=== PATIENT | female | born 1955 | race Caucasian/White ===

== ENCOUNTER → 2016-12-06 | Outpatient (CLI) | payer BC ==
--- NOTE | 2016-12-06 16:37 | MAMMOGRAPHY REPORT ---
BILATERAL DIGITAL SCREENING MAMMOGRAM TOMOSYNTHESIS WITH CAD: 12/06/2016 CLINICAL HISTORY: Routine screening. Patient has no complaints. TECHNIQUE: Bilateral breast tomosynthesis in addition to standard 2D mammography was performed. Curr ent study was also evaluated with a Computer Aided Detection (CAD) system. COMPARISON: Comparison is made to exams dated: 11/26/2015 mammogram, 09/23/2014 mammogram, 3 mammogram, 01/31/2012 mammogram, and 06/10/2010 mammogram. BREAST COMPOSITION: The tissue of both breasts is heterogeneously dense, which may obscure small ma sses. FINDINGS: There is questionable architectural distortion in the 12:00 posterior retroglandular fat of the right breast. Although this could represent normal overlapping fibrolinear markings, additio nal spot compression tomosynthesis HD views and possibly ultrasound are recommended. No other suspicious mass, architectural distortion or cluster of microcalcifications is seen bilater ally. IMPRESSION: ACR BI-RADS CATEGORY 0: INCOMPLETE EVALUATION: NEED ADDITIONAL IMAGING EVALUATION The questionable architectural distortion in the 12:00 posterior right breast needs additional evalu ation. The patient will be called to schedule an appointment. Approximately 10% of breast cancers are not detected with mammography. A negative mammographic repor t should not delay biopsy if a clinically suggestive mass is present. Nelda Gonzales M.D. ay/:12/06/2016 15:28:47 Facing Baster Jumpbasting: Tiffany Fernandez, [facility] letter sent: Addl Imaging 0 BI-RADS Code: ACR BI-RADS Category 0: Incomplete Evaluation: Need Additional Imaging Evaluation
== END | disposition home or self-care (01) ==
LOC: C.MAMM 12:57
PROVIDERS: ATTEND Family Medicine
DX: Z12.31 Encounter for screening mammogram for malignant neoplasm of breast (principal); R92.8 Other abnormal and inconclusive findings on diagnostic imaging of breast; Z13.820 Encounter for screening for osteoporosis

== ENCOUNTER → 2016-12-16 | Outpatient (CLI) | payer BC ==
--- NOTE | 2016-12-16 16:26 | MAMMOGRAPHY REPORT ---
UNILATERAL RIGHT DIGITAL DIAGNOSTIC MAMMOGRAM TOMOSYNTHESIS: 12/16/2016 CLINICAL HISTORY: Callback from screening mammogram for possible right breast architectural distorti on. TECHNIQUE: Breast tomosynthesis in addition to standard 2D mammography was performed. Spot wood qian right CC and MLO 2-D and tomosynthesis images were obtained. COMPARISON: Comparison is made to exams dated: 12/06/2016 mammogram - [facility], 11/26/2015 mammogram, 09/23/2014 mammogram, 07/11/2013 mammogram, 01/31/2012 mammogram, and 06/10/2010 m ammogram. BREAST COMPOSITION: The tissue of the right breast is heterogeneously dense, which may obscure smal l masses. FINDINGS: The previously described questionable architectural distortion in the right 12:00 breast does not persist on the additional spot compression views. The appearance of this region is similar to multiple prior exams. The tissue in this region has the appearance of normal fibroglandular tis emerald on the additional views, without a suspicious mass or area of architectural distortion seen. Fi ndings are benign and compatible with normal fibroglandular tissue. IMPRESSION: ACR BI-RADS CATEGORY 2: BENIGN The questionable architectural distortion in the right 12:00 breast does not persist on the addition al views. Findings are benign and compatible with normal fibroglandular tissue. There is no mammog raphic evidence of malignancy. A 1 year screening mammogram is recommended. The patient has been ve rbally notified of the results. Approximately 10% of breast cancers are not detected with mammography. A negative mammographic repor t should not delay biopsy if a clinically suggestive mass is present. Dedra Ring M.D. ah/:12/16/2016 14:12:04 Retrofit Installer: Dora JOHNSON)(M), [facility] letter sent: Normal 1/2 BI-RADS Code: ACR BI-RADS Category 2: Benign
== END | disposition home or self-care (01) ==
LOC: C.MAMM 13:42
PROVIDERS: ATTEND Family Medicine
DX: N64.9 Disorder of breast, unspecified (principal)

== ENCOUNTER → 2016-12-16 | Outpatient (CLI) | payer BC ==
--- NOTE | 2016-12-16 09:06 | DIAGNOSTIC IMAGING REPORT ---
SACRUM COCCYX MIN 2 VIEWS CLINICAL HISTORY: Sacral pain. COMPARISON STUDY: None. FINDINGS: Posterior fusion hardware within the lower lumbar spine. No fractures within the sacrum or coccyx. Mild degenerative changes within the bilateral sacroiliac joints. The presacral soft tissues are intact. Lucency overlying the upper mid sacrum is likely due to overlapping bowel. IMPRESSION: No fractures within the sacrum or coccyx. Electronically signed by: Ayden Hill M.D. 12/16/2016 9:04 AM Dictated Date/Time: 12/16/2016 9:01 AM
--- NOTE | 2016-12-16 09:19 | DIAGNOSTIC IMAGING REPORT ---
LUMBAR SPINE 5 VIEWS CLINICAL HISTORY: Low back pain. FINDINGS: 5 views of the lumbar spine are obtained. No prior studies are available for comparison at the time of dictation. The skeletal structures appear osteopenic. There is no radiographic evidence of fracture or malalignment. Vertebral body height and alignment are maintained. There are postoperative changes from laminectomy and posterior fusion at L4-L5. Interpedicular screws are present at both levels. The orthopedic hardware appears intact. The transverse and remaining spinous processes are intact. There is no evidence of spondylolysis. There is evidence of discectomy at L4-L5. Mild degenerative disc space narrowing is present at L3-L4. The remaining intervertebral disc spaces are well-maintained. Anterior osteophytes are seen in the lower thoracic spine. The visualized bony pelvis appears intact. There is a nonobstructed abdominal bowel gas pattern. Moderate colonic fecal retention is observed. IMPRESSION: There is no acute bony abnormality seen involving the lumbosacral spine noting postoperative changes from L4 to L5 spinal fusion. Electronically signed by: Nish Keen M.D. 12/16/2016 9:17 AM Dictated Date/Time: 12/16/2016 9:02 AM
== END | disposition home or self-care (01) ==
LOC: C.RAD1850 08:34
PROVIDERS: ATTEND Family Medicine
DX: Z86.69 Personal history of other diseases of the nervous system and sense organs (principal)

== ENCOUNTER → 2017-12-08 | Outpatient (CLI) | payer OTHER ==
--- NOTE | 2017-12-08 15:07 | MAMMOGRAPHY REPORT ---
BILATERAL DIGITAL SCREENING MAMMOGRAM TOMOSYNTHESIS WITH CAD: 12/08/2017 CLINICAL HISTORY: Routine screening. Patient has no complaints. TECHNIQUE: Breast tomosynthesis in addition to standard 2D mammography was performed. Current study was also evaluated with a Computer Aided Detection (CAD) system. COMPARISON: Comparison is made to exams dated: 12/16/2016 mammogram, 12/06/2016 mammogram - [facility], 11/26/2015 mammogram, 09/23/2014 mammogram, 07/11/2013 mammogram, and 01/31/2012 tripp mogram. BREAST COMPOSITION: The tissue of both breasts is heterogeneously dense, which may obscure small mas ses. FINDINGS: No suspicious masses, calcifications, or areas of architectural distortion are noted in ei ther breast. There has been no significant interval change compared to prior exams. IMPRESSION: ACR BI-RADS CATEGORY 1: NEGATIVE There is no mammographic evidence of malignancy. A 1 year screening mammogram is recommended. The pa tient will receive written notification of the results. Approximately 10% of breast cancers are not detected with mammography. A negative mammographic report should not delay biopsy if a clinically suggestive mass is present. Dedra Ring M.D. ah/:12/08/2017 08:10:25 Optical Scientist: Mahnaz SWIFT(Gama)(Susan), [facility] letter sent: Normal 1/2 BI-RADS Code: ACR BI-RADS Category 1: Negative
== END | disposition home or self-care (01) ==
LOC: C.MAMM 07:34
PROVIDERS: ATTEND Family Medicine
DX: Z12.31 Encounter for screening mammogram for malignant neoplasm of breast (principal)